=== PATIENT | male | born 2000 | race Caucasian/White ===

== ENCOUNTER 2021-03-09 20:43 | Emergency (ER) | payer OTHER, SELFPAY ==
[2021-03-09 20:54] VITALS: BP 117/72; PULSE 104; RESP 17; TEMP 37.9; O2SAT 99; BMI 21.9
--- NOTE | 2021-03-09 21:14 | ED_ITS ---
HPI - Ear Problem General: Chief complaint: Ear Stated complaint: sore throat Time Seen by Provider: 03/09/21 20:58 History of Present Illness: HPI Narrative: Patient is a 20-year-old male comes to the ED with a sore throat and bilateral ear pain. Symptoms started approximately 2 to 3 days ago. He is also has a fever of 101 degrees earlier today and he took some Motrin around 1 PM. Sore throat hurts to swallow. His ear pain is in both ears but his left ear is hurting him most. Associated symptoms: Reports ear or mastoid pain (Bilateral) and fever(s); Denies headache(s) or neck pain Review of Systems Const: Reports: fever(s); Denies: chills or fatigue Eyes: Denies: change in vision or eye discomfort ENMT: Reports: throat pain, odynophagia and ear or mastoid pain (Bilateral); Denies: nasal discharge or nasal congestion Card: Denies: chest pain, palpitations, edema, swelling of feet/ankles, dyspnea on exertion or orthopnea Resp: Denies: dyspnea, productive cough or non-productive cough GI: Denies: abdominal pain, nausea, vomiting, diarrhea, constipation or hematochezia : Denies: flank pain, difficulty urinating, dysuria or hematuria Musc: Denies: neck pain, back pain or extremity swelling Skin/Breast: Denies: rash or new lesions Neuro: Denies: headache(s), numbness in extremities or weakness in extremities Physical Exam Const: COMMON NORMALS: no acute distress, patient oriented x3 and alert GENERAL APPEARANCE: cooperative and comfortable HENMT: COMMON NORMALS: normocephalic and EAC's normal HEAD & SCALP: normocephalic EXTERNAL AUDITORY CANAL: EAC's normal TYMPANIC MEMBRANE: TM abnormal TM laterality: bilateral bulging, erythematous and with fluid behind the TM MOUTH: Normal oral and palatal mucosa present THROAT: uvula midline and posterior oropharynx abnormal edema and erythema Neck/C-Spine: COMMON NORMALS: supple GENERAL: Yes normal visual inspection Resp: COMMON NORMALS: normal respiratory effort, No retractions, No use of accessory muscles and clear to auscultation bilaterally AUSCULTATION: clear to auscultation bilaterally Cardio: COMMON NORMALS: regular rate, regular rhythm, S1 normal heart sound present, S2 normal heart sound present, No gallops present (Cardio), No clicks present (Cardio), No murmurs present (Cardio) and Peripheral pulses 2+ throughout RATE: regular rate RHYTHM: regular rhythm HEART SOUNDS: S1 normal heart sound present and S2 normal heart sound present PERIPHERAL PULSES: Peripheral pulses 2+ throughout GI: COMMON NORMALS: Normal to inspection, nondistended, normoactive bowel sounds present, Soft to palpation, non-tender and no masses PALPATION: Yes Soft to palpation : COMMON NORMALS: Yes no CVA tenderness BLADDER/KIDNEY EXAM: Yes no CVA tenderness Back/Pelvis: COMMON NORMALS: no CVA tenderness Extremity: COMMON NORMALS: normal to inspection Neuro: COMMON NORMALS: patient oriented x3 and moves all extremities SENSORIUM/ORIENTATION: Yes alert Skin: GENERAL SKIN EXAM: dry skin Course Vital Signs: Vital signs: Vital Signs Temperature 100.3 F H 03/09/21 20:54 Pulse Rate 104 H 03/09/21 20:54 Respiratory Rate 17 03/09/21 20:54 Blood Pressure 117/72 03/09/21 20:54 Pulse Oximetry 99 03/09/21 20:54 MDM - Ear MDM Narrative: Medical decision making narrative: Patient is a 20-year-old male comes to the ED with a sore throat and ear pain. He has also had a fever as well. Symptoms been going on for the past couple days. Exam shows otitis media in the ears bilaterally with some posterior oropharynx erythema and swelling noted. Temp 100.3 the rest of vitals are stable. Rapid strep negative. Patient diagnosed with otitis media and pharyngitis and given a dose of amoxicillin here in the ED. patient discharged home with amoxicillin prescription. He was told to follow-up with PCP in 7 to 10 days for reevaluation. Return to ED precautions given. Patient understood and agreed with plan. Lab Data: Attestation: I reviewed the patient's lab results. Labs: Lab Results 03/09/21 21:38 Group A Strep Rapi d Negative (Negative) Discharge Plan Discharge Patient Disposition: Home Clinical Impression: Otitis media Qualifiers: Otitis media type: serous Chronicity: acute Laterality: bilateral Recurrence: non-recurrent Qualified Code(s): H65.03 - Acute serous otitis media, bilateral Pharyngitis Qualifiers: Pharyngitis/tonsillitis etiology: unspecified etiology Qualified Code(s): J02.9 - Acute pharyngitis, unspecified Condition: Stable Prescriptions: New amoxicillin 500 mg tablet 500 mg PO BID 10 Days Qty: 20 RF: 0 Discharge Orders: Discharge ED (Routine); Ordered 03/09/21 Ordered By: Richard Barriga Discharge Diet: Regular Discharge Activity: Increase activity as tolerated Patient Instructions: Otitis Media - Adult, Pharyngitis (ED) Activity Restrictions/Additional Instructions: Follow-up with medical provider as directed in 7 to 10 days for reevaluation. Take medications as prescribed. Gargle salt water to help with sore throat symptoms. Return to the ER or your medical provider if condition worsens. Please read and understand discharge instructions. Thank you for choosing [facility] for your healthcare needs today. Please realize this is an emergency room and that we are providing you with a medical screening exam and this may not be complete and all inclusive of all the testing and or work up that you may need to determine your ailment or severity of your illness. It is very important that you follow up as instructed or that you return to the Emergency Department should you have concerns or if your condition changes or worsens in any way. Coding Level of Care Code ED Spiritual Advisor for Sharon Fwrebeca Exam Comprehensive
[2021-03-09] MEDS: acetaminophen 500 mg Tablet 1000 MG PO (21:35)
[2021-03-09] MEDS: amoxicillin 500 mg Capsule PO (21:36)
[2021-03-09 22:07] LABS: Rapid Strep A Test Negative (Negative)
== END 2021-03-09 22:43 | disposition home or self-care (01) ==
PROVIDERS: Emergency Provider Physician Assistant
DX: J02.9 Acute pharyngitis, unspecified (principal); H65.03 Acute serous otitis media, bilateral
CPT/HCPCS: 87081; 87880; 99283

== ENCOUNTER 2022-01-13 11:50 | Emergency (ER) | payer SELFPAY ==
[2022-01-13 12:03] VITALS: BP 99/69; PULSE 91; RESP 16; TEMP 36.7; O2SAT 98
--- NOTE | 2022-01-13 13:32 | W.ED.NAVMDI ---
HPI - Nausea/Vomiting/Diarrhea General: Chief complaint: Nausea/Vomiting/Diarrhea Stated complaint: N/V/D, headache Time Seen by Provider: 01/13/22 13:31 History of Present Illness: Mr. Blood is a 21-year-old male without reported significant past medical history presents to the emergency department due to generalized illness. He reports onset of symptoms primarily last night with GI symptoms including abdominal cramping, nonbilious and nonbloody emesis, numerous episodes of watery diarrhea. Also has associated headache. Intensity symptoms moderate. Does have sick contacts. Worse with eating. No other specific changes in health, exacerbating, or alleviating factors identified. Onset (ago): day(s) Description of vomiting: food contents and watery Description of diarrhea: watery Associated nausea: Yes Associated abdominal pain: Yes Location of pain: Diffuse Severity: mild Quality: cramping Associated symtoms: Reports nausea Review of Systems General: Reports: 10 or more systems reviewed and unremarkable except in HPI and below GI: Reports: nausea [facility] ED PFSH: Medical History (Updated 01/13/22 @ 15:36 by Eric Saeed MD) No significant past medical history Surgical History (Updated 01/13/22 @ 13:47 by Eric Saeed MD) No significant past surgical history Physical Exam Const: COMMON NORMALS: alert GENERAL APPEARANCE: cooperative and well developed HENMT: COMMON NORMALS: normocephalic and atraumatic HEAD & SCALP: normocephalic and atraumatic Eye: COMMON NORMALS: conjunctivae normal CONJUNCTIVA: Yes conjunctivae normal SCLERA: sclerae normal Neck/C-Spine: COMMON NORMALS: supple and no meningeal signs GENERAL: Yes trachea midline Resp: COMMON NORMALS: clear to auscultation bilaterally EFFORT & INSPECTION: Yes able to speak in complete sentences AUSCULTATION: clear to auscultation bilaterally Cardio: COMMON NORMALS: regular rate and regular rhythm RATE: regular rate RHYTHM: regular rhythm GI: COMMON NORMALS: Soft to palpation PALPATION: Yes Soft to palpation and No Tenderness to palpation present (GI) Extremity: GENERAL: Yes normal exam except as noted and No edema Neuro: COMMON NORMALS: moves all extremities SENSORIUM/ORIENTATION: Yes alert and No Orientation impaired MENINGEAL SIGNS: Yes no meningeal signs Psych: COMMON NORMALS: mental status grossly normal and Normal thought process present THOUGHT PROCESS: Normal thought process present Course Vital Signs: Vital signs: Vital Signs Temperature 98.1 F 01/13/22 12:03 Pulse Rate 91 01/13/22 12:03 Respiratory Rate 16 01/13/22 12:03 Blood Pressure 112/68 01/13/22 15:30 Pulse Oximetry 99 01/13/22 15:30 MDM - Nausea/Vomiting/Diarrhea Medical Decision Making 21-year-old male presenting with generalized illness including abdominal symptoms. Does have sick contacts. Patient nontoxic on exam though somewhat ill-appearing. Laboratory studies with no leukocytosis and normal hemoglobin. Metabolic panel with some evidence of dehydration. No UTI. Given physical exam and laboratory findings no indication for imaging at this time. Patient proved with fluids, headache treatment, and antiemetic. Able to tolerate p.o. intake. Most likely cause of patient symptoms is viral in nature. The results of ED evaluation were discussed with the patient including prescriptions and/or symptomatic cares (if applicable) including appropriate and responsible use, followup plan, and return precautions. The patient verbalized understanding and felt safe for discharge. Medical Records I reviewed the patient's medical records. Lab Data I reviewed the patient's lab results. : 01/13/22 14:29 01/13/22 14:29 Laboratory Results WBC 10.0 10^3/uL (4.0-10.0) 01/13/22 14: Corrected WBC Cancelled 01/13/22 14:02 RBC 4.78 10^6/uL (4.1-5.3) 01/13/22 14: Hgb 13.9 g/dL (11.7-16.6) 01/13/22 14: Hct 43.4 % (42.0-52.0) 01/13/22 14: MCV 90.8 fl (80-94) 01/13/22 14: MCH 29.1 pg (28.0-34.0) 01/13/22 14: MCHC 32.0 g/dL (30.0-36.0) 01/13/22 14: RDW 12.7 % (12.1-15.1) 01/13/22 14:29 Plt Count 264 10^3/cmm (130-400) 01/13/22 14:29 MPV 11.0 fL (7.4-10.4) H 01/13/22 14:29 Gran % Cancelled 01/13/22 14:02 Neut % (Auto) 82.5 % 01/13/22 14: Lymph % (Auto) 7.9 % 01/13/22 14: [place] % (Auto) 8.6 % 01/13/22 14: Eos % (Auto) 0.2 % 01/13/22 14: Baso % (Auto) 0.4 % 01/13/22 14: Neut # (Auto) 8.20 10^3/uL (1.8-7.7) H 01/13/22 14: Lymph # (Auto) 0.8 10^3/uL (0.8-4.8) 01/13/22 14: [place] # (Auto) 0.9 10^3/uL (0.2-0.9) 01/13/22 14: Eos # (Auto) 0.0 10^3/uL (0.0-0.8) 01/13/22 14: Baso # (Auto) 0.0 10^3/uL (0.0-0.1) 01/13/22 14: Absolute Gran (auto) Cancelled 01/13/22 14:02 Nucleated RBC % (auto) 0 % 01/13/22: Nucleated RBCs # 0.0 /100WBC 01/13/22 14: Sodium 132 mmol/L (136-145) L 01/13/22 14: Potassium 3.3 mmol/L (3.5-5.1) L 01/13/22 14: Chloride 96 mmol/L (98-107) L 01/13/22 14: Carbon Dioxide 27 mmol/L (22-29) 01/13/22 14: Anion Gap 12.3 (5-19) 01/13/22 14: BUN 14 mg/dL (6-20) 01/13/22 14: Creatinine 0.8 mg/dL (0.7-1.2) 01/13/22 14: GFR Calculation 122.0 mL/min (90-130) 01/13/22 14: Glucose 96 mg/dL (65-115) 01/13/22 14: Calculated Osmolality 274 mOsm/kg (285-295) L 01/13/22 14:29 Calcium 8.6 mg/dL (8.5-10.5) 01/13/22 14:29 Total Bilirubin 0.6 mg/dL (0.15-1.2) 01/13/22 14:29 AST 17 U/L (0-40) 01/13/22 14:29 ALT 16 U/L (0-41) 01/13/22 14:29 Alkaline Phosphatase 65 U/L (40-130) 01/13/22 14:29 Total Protein 6.3 g/dL (6.6-8.7) L 01/13/22 14:29 Albumin 3.7 g/dL (3.5-5.2) 01/13/22 14:29 Globulin 2.6 g/dL (1.3-4.6) 01/13/22 14:29 Lipase 13 U/L (13-60) 01/13/22 14:29 Urine Color Yellow (Yellow) 01/13/22 15:26 Urine Appearance Clear (CLEAR) 01/13/22 15:26 Urine pH 6 (5-7) 01/13/22 15:26 Ur Specific [place] 1.015 (1.005-1.030) 01/13/22 15:26 Urine Protein Trace (Negative) 01/13/22 15:26 Urine Glucose (UA) Norm (Normal) 01/13/22 15:26 Urine Ketones 1+ (Negative) H 01/13/22 15:26 Urine Blood Neg (Negative) 01/13/22 15:26 Urine Nitrate Negative (Negative) 01/13/22 15:26 Urine Bilirubin Neg (Negative) 01/13/22 15:26 Urine Urobilinogen Norm mg/dL (Negative) 01/13/22 15:26 Ur Leukocyte Esterase Negative (Negative) 01/13/22 15:26 Urine RBC None /hpf (0-2) 01/13/22 15:26 Urine WBC None /hpf (0-5) 01/13/22 15:26 Ur Squamous Epith Cells None /hpf (0-5) 01/13/22 15:26 Amorphous Sediment Not Reportable 01/13/22 15:26 Urine Bacteria Trace /hpf (NONE) 01/13/22 15:26 Urine Mucus Trace /hpf 01/13/22 15:26 Discharge Plan Discharge Patient Disposition: Home Clinical Impression: Nausea, vomiting, and diarrhea Condition: Stable Prescriptions: New ondansetron 4 mg tablet,disintegrating 4 mg PO Q8H PRN (Reason: nausea and vomiting) Qty: 15 0RF Discharge Orders: Discharge ED (Routine); Ordered 01/13/22 Ordered By: Eric Saeed Patient Instructions: Acute Nausea and Vomiting (ED), Acute Diarrhea (ED), Viral Syndrome (ED) Activity Restrictions/Additional Instructions: Thank you for visiting the emergency department. You were seen and evaluate for nausea, vomiting, and diarrhea. The exact cause of your symptoms is unclear though most likely viral in nature. We are pleased that you had improvement with treatment. Labs did show mild dehydration, please ensure that you are staying hydrated. I will prescribe antinausea medication. Please follow-up with a primary care provider. Return to the emergency department for uncontrolled symptoms or anything else that you are concerned about a feel needs emergency department evaluation. Stand Alone Forms: Work/School Release Coding Level of Care Code ED Elementary School Teacher'S Aide for Sharon Fwrebeca Exam Comprehensive
[2022-01-13 13:48] VITALS: BP 116/68; O2SAT 99
[2022-01-13 14:00] VITALS: BP 116/68; O2SAT 96
[2022-01-13] MEDS: metoclopramide 5 mg/mL SDV 2 mL 10 MG IVP (14:22)
[2022-01-13] MEDS: ondansetron 2 mg/ML SDV 2 mL 4 MG IVP (14:22)
[2022-01-13] MEDS: ketorolac 30 mg/mL INJ 15 MG IVP (14:22)
[2022-01-13] MEDS: diphenhydrAMINE 50 mg/mL SDV 1mL 12.5 MG IVP (14:22)
[2022-01-13] MEDS: sodium chloride 0.9% 1,000 ML 999 ML IV (14:22)
[2022-01-13 14:30] VITALS: BP 127/70; O2SAT 97
[2022-01-13 14:43] LABS: Basophils % 0.4 %; Eosinophils % 0.2 %; Hematocrit 43.4 % (42.0-52.0); Hemoglobin 13.9 g/dL (11.7-16.6); Lymphocytes # 0.8 10^3/uL (0.8-4.8); Lymphocytes % 7.9 %; Mean Corpuscular Hemoglobin 29.1 pg (28.0-34.0); Mean Corpuscular Volume 90.8 fl (80-94); Monocytes # 0.9 10^3/uL (0.2-0.9); Monocytes % 8.6 %; Neutrophils % 82.5 %; Nucleated Red Blood Cells % 0 %; Platelet Count 264 10^3/cmm (130-400); Red Blood Count 4.78 10^6/uL (4.1-5.3); Red Cell Distribution Width 12.7 % (12.1-15.1)
[2022-01-13 15:00] VITALS: BP 107/55; O2SAT 98
[2022-01-13 15:10] LABS: Alanine Aminotransferase 16 U/L (0-41); Albumin Level 3.7 g/dL (3.5-5.2); Alkaline Phosphatase 65 U/L (40-130); Anion Gap 12.3 (5-19); Aspartate Amino Transferase 17 U/L (0-40); Blood Urea Nitrogen 14 mg/dL (6-20); Calcium 8.6 mg/dL (8.5-10.5); Carbon Dioxide 27 mmol/L (22-29); Chloride 96 mmol/L (98-107); Globulin 2.6 g/dL (1.3-4.6); Glucose 96 mg/dL (65-115); Lipase 13 U/L (13-60); Osmolality Calculated 274 mOsm/kg (285-295); Potassium 3.3 mmol/L (3.5-5.1); Sodium 132 mmol/L (136-145); Total Bilirubin 0.6 mg/dL (0.15-1.2); Total Protein 6.3 g/dL (6.6-8.7)
[2022-01-13 15:30] VITALS: BP 112/68; O2SAT 99
[2022-01-13 15:43] LABS: Urine Color Yellow (Yellow)
[2022-01-13 15:44] LABS: Add Urine Microscopic? YES; Bacteria Urine TRACE /hpf; Bilirubin Urine Neg (Negative); Blood Urine Neg (Negative); Glucose Urine UA Norm (Normal); Ketones Urine 1+ (Negative); Leukocyte Esterase Urine Negative (Negative); Mucus Urine TRACE /hpf; Nitrate Urine Negative (Negative); Protein Urine Trace (Negative); Specific Gravity, Urine 1.015 (1.005-1.030); Urine Appearance Clear (CLEAR); Urobilinogen Urine Norm (Negative); pH Urine 6 (5-7)
[2022-01-13 15:45] LABS: Add Urine Culture? No
== END 2022-01-13 16:05 | disposition home or self-care (01) ==
PROVIDERS: Emergency Provider Emergency Medicine
DX: R11.2 Nausea with vomiting, unspecified (principal); R19.7 Diarrhea, unspecified
CPT/HCPCS: 36415; 80053; 81001; 83690; 85025; 96361; 96374; 96375; 99284; J1200; J1885; J2405; J2765; J7030

== ENCOUNTER 2022-07-12 16:24 | Emergency (ER) | payer SELFPAY ==
[2022-07-12 16:30] VITALS: BP 121/76; PULSE 70; RESP 16; TEMP 36.9; O2SAT 99; BMI 21.2
--- NOTE | 2022-07-12 17:26 | CTR_ITS ---
PROCEDURE INFORMATION: Exam: CT Maxillofacial Without Contrast Exam date and time: 07/12/2022 5:31 PM Age: 22 years old Clinical indication: Injury or trauma; Blunt trauma (contusions or hematomas); Maxilla and jaw; Right; Additional info: Injury, right tmj hit with metal pole. Laceration. Pain with TECHNIQUE: Imaging protocol: Computed tomography of the face without contrast. Radiation optimization: All CT scans at this facility use at least one of these dose optimization techniques: automated exposure control; mA and/or kV adjustment per patient size (includes targeted exams where dose is matched to clinical indication); or iterative reconstruction. REPORTING DATA: Count of CT and Cardiac NM exams in prior 12 months: This patient has received 0 known CTs and 0 known cardiac nuclear medicine studies in the 12 months prior to the current study. COMPARISON: No relevant prior studies available. RADIATION DOSE METRICS: Total DLP (mGy-cm): 629.78 FINDINGS: Orbital cavities: Orbits are normal. Globes are unremarkable. Bones/joints: There is a comminuted displaced fracture of the right zygomatic arch with fractures at 3 different sites resulting in inward deviation and angulation at the midportion of the zygomatic arch. Remainder of the osseous structures are intact. Temporomandibular joints are unremarkable. Paranasal sinuses: Normal. No air-fluid levels. Soft tissues: Unremarkable. CT/CT facial bones wo con* [id number] IMPRESSION: Acute comminuted displaced fracture right zygomatic arch.
--- NOTE | 2022-07-12 17:31 | W.ED.HEATRA ---
HPI - Head Injury General: Chief complaint: Dental/Oral Stated complaint: jaw injury Time Seen by Provider: 07/12/22 17:14 Source: patient Mode of arrival: ambulatory Limitations: no limitations History of Present Illness: Patient presents to the emergency department today accompanied by significant other for evaluation treatment of injury sustained to the right side of his face. Patient reports that just prior to arrival he was carrying a large marielos. Patient states it slipped out of his hands and has he dropped it, the metal handle flipped up and impacted him on the right side of the face. Patient received a laceration over his right TMJ which began to bleed. Denies loss of consciousness at the time of the impact. He does complain of headache and right ear pain with pain over his right TMJ and decreased range of motion of his jaw. Patient denies nausea or vomiting. He denies blurry vision. He denies neck pain. Unknown last tetanus immunization. Immunization status is not indicated in his chart. Review of Systems General: Reports: 10 or more systems reviewed and unremarkable except in HPI and below PFS ED PFSH: Medical History No significant past medical history Surgical History No significant past surgical history Physical Exam Const: COMMON NORMALS: no acute distress, patient oriented x3 and alert HENMT: OTHER: Patient has a horizontal, linear laceration over the right TMJ approximately 1 cm in length. There is dried blood present but no active bleeding appreciated. There is swelling around this wound. Patient is profusely tender to palpation in this area. Patient has tenderness on the lateral zygomatic arch but no specific right orbital tenderness. No signs of bleeding from the right EAC. No obvious signs of dental trauma. PERRLA. EOMs intact. Patient with only mild capability of opening his mouth due to pain of the right jaw. Eye: COMMON NORMALS: Equal, round and reactive pupils present, EOMs intact bilaterally and conjunctivae normal CONJUNCTIVA: Yes conjunctivae normal PUPIL: Yes Equal, round and reactive pupils present Neck/C-Spine: COMMON NORMALS: no JVD Lymph: LYMPHATIC: no lymphadenopathy noted Resp: COMMON NORMALS: normal respiratory effort, No retractions and No use of accessory muscles Cardio: COMMON NORMALS: no JVD and regular rate RATE: regular rate : COMMON NORMALS: Yes no CVA tenderness BLADDER/KIDNEY EXAM: Yes no CVA tenderness Back/Pelvis: COMMON NORMALS: no CVA tenderness, thoracic and lumbar spine normal to inspection and thoraco-lumbar ROM normal Extremity: COMMON NORMALS: normal to inspection, full ROM and no pedal edema Neuro: COMMON NORMALS: patient oriented x3 SENSORIUM/ORIENTATION: Yes alert CRANIAL NERVES: Yes CN normal except as noted SPEECH: speech normal GAIT: Yes Normal gait present Skin: COMMON NORMALS: no rashes or lesions noted and turgor normal GENERAL SKIN EXAM: no rashes or lesions noted and turgor normal Procedures Laceration Laceration 1: Site: face Side (If applicable): right Size (cm): 1 Description: linear Depth: simple, single layer Pre-repair: wound explored and irrigated extensively Skin layer closed with: other (Glue) Course Vital Signs: Vital signs: Vital Signs Temperature 98.5 F 07/12/22 16:30 Pulse Rate 70 07/12/22 16:30 Respiratory Rate 16 07/12/22 16:30 Blood Pressure 121/76 07/12/22 16:30 Pulse Oximetry 99 07/12/22 16:30 Oxygen Delivery Me thod Room Air 07/12/22 16:30 MDM - Head Injury Medcial Decision Making Patient presented to the emergency department today for evaluation treatment of injury sustained to the right side of his face after being impacted by a metal bar. Patient does have a small linear laceration that is partial-thickness noted within the hair of his sideburns. There is no active bleeding. The wound was cleaned and, after discussion with the patient, was repaired using surgical glue. Wound care and glue care instructions provided at discharge. Patient was noticeably tender around his right TMJ and had pain and decreased mobility of his jaw. For that reason we did go ahead and CT his face but, rather than finding fracture of the mandible or at the TMJ, patient was found to have a comminuted displaced fracture of the right zygomatic arch. Based on this finding, I did reach out to ENT here through [facility] and spoke with Dr. Ortiz who, as the pieces of the fracture are rather large, is confident they will be able to repair here rather than defer to maxillofacial in [place]. Patient is to have follow-up in the ENT office on Thursday. Patient was given the office phone number and instructed to call Thursday morning to schedule his appointment for Thursday. Explained to him that the doctor does suspect the need for surgery to repair of the fracture but, would not happen for approximately 1 to 2 weeks. Patient is given medication to help with his pain. We discussed at home treatments as well. Patient was given a note for his employer excusing him for several days as he will be taking his pain medication and needs to have follow-up with ENT. Patient verbalizes understanding and agreement to the treatment plan. Differential Diagnosis Likely concussion without loss of consciousness (Facial laceration, facial fracture), closed head injury and postconcussion syndrome Lab Data Radiology Impressions Face CT 07/12/22 17:26 IMPRESSION: Acute comminuted displaced fracture right zygomatic arch. Discharge Plan Discharge Patient Disposition: Home Clinical Impression: Fracture of right zygomatic arch, Facial laceration Condition: Stable Prescriptions: No Action ondansetron 4 mg tablet,disintegrating 4 mg PO Q8H PRN (Reason: nausea and vomiting) Qty: 15 0RF Discharge Orders: Discharge ED (Routine); Ordered 07/12/22 Ordered By: Sera Bear Discharge Diet: Usual diet Discharge Activity: Increase activity as tolerated Patient Instructions: Facial Fracture (ED), Skin Adhesive Care (ED) Activity Restrictions/Additional Instructions: CT examination of your facial bones shows a comminuted fracture of your right cheekbone. I spoke to ENT regarding this finding and they do believe it will require surgical repair. However, they often wait 1-1/2 to 2 weeks to repair due to the amount of swelling from the initial injury. I spoke with Dr. Ortiz with ENT here at [facility] and he would like to see you for follow-up around Thursday this coming week. He would like you to call his office at [phone] for [place] on Thursday to make them aware of your need for follow-up and the doctors request to see you on Thursday. At that time you all can discuss the surgical repair options and decide how best to proceed. You can gently apply ice to help with swelling for 15 to 20 minutes at a time. You can use Tylenol and ibuprofen. We have given you a short course of narcotic pain medication to help with pain which you may wish to take only at night before bed. Do not drive or operate any machinery while taking pain medication. The laceration sustained to your face was repaired using surgical glue. While the area can get wet, we do not recommend soaking it. Glue should come off on its own in approximately 5 to 7 days. Avoid picking or scratching at it as it can cause reopening of the wound edges and prevent healing. Stand Alone Forms: Work/School Release Coding Level of Care Code ED Software Administrator for Sharon Zamora
[2022-07-12] MEDS: HYDROcodone-acetaminophen 5-325 mg Tablet 1 TAB PO (17:41)
[2022-07-12] MEDS: tetanus-dipt-pertussis 0.5 mL SDV IM (17:43)
--- NOTE | 2022-07-24 10:27 | DCPLANNER ---
TCM called patient due to no primary care physician - patient declines at this time.
== END 2022-07-12 19:35 | disposition home or self-care (01) ==
PROVIDERS: Emergency Provider Physician Assistant
DX: S02.40EA Zygomatic fracture, right side, initial encounter for closed fracture (principal); S01.411A Laceration without foreign body of right cheek and temporomandibular area, initial encounter; W20.8XXA Other cause of strike by thrown, projected or falling object, initial encounter; Z23 Encounter for immunization
CPT/HCPCS: 12011; 70486; 90471; 90715; 99284